=== PATIENT | male | born 1990 ===

== ENCOUNTER 2018-07-03 17:23 | Emergency (ER) | payer MEDICAID ==
--- NOTE | 2018-07-03 17:43 | ED PDOC ---
Arrival/HPI - General Time Seen by Provider: 07/03/18 17:27 Historian: Patient - History of Present Illness Narrative History of Present Illness (Text): 07/03/18 17:57 27 y/o male with no significant PMH presents to the Emergency department c/o chest pain and SOB x 4 days. Chest pain is left sided, sharp, and pleuritic, worse with deep breaths. He has been seen at [facility] twice and his PMD once in the last 4 days for the same complaints with negative workups. Pt thinks the symptoms may be caused or worsened by his anxiety. Admits to smoking approx 3 ci garettes per day and marijuana occasionally but not in the last 4 days. Denies trauma, recent URI, fever, chills, congestion, palpitations, cough, syncope, abdominal pain, nausea, vomiting, dizziness, headache, vision changes, or any other associated complaints. Past Medical History - Provider Review Nursing Documentation Reviewed: Yes Family/Social History - Physician Review Nursing Documentation Reviewed: Yes Family/Social History: No Known Family HX Allergies/Home Meds Allergies/Adverse Reactions: Allergies No Known Allergies Allergy (Verified 07/03/18 17:47) Home Medications: Home Meds Medication Instructions Recorded Confirmed Fluticasone Furoate [Arnuity 50 mcg IH DAILY 07/03/18 07/03/18 Ellipta] Review of Systems - Review of Systems Constitutional: Normal. absent: Fatigue, Fevers Eyes: Normal. absent: Vision Changes ENT: Normal. absent: Sore Throat, Sinus Congestion Respiratory: SOB. absent: Cough Cardiovascular: Chest Pain. absent: Palpitations, Syncope Gastrointestinal: Normal. absent: Abdominal Pain, Nausea, Vomiting Musculoskeletal: Normal. absent: Back Pain, Neck Pain Skin: Normal. absent: Rash Neurological: Normal. absent: Headache, Dizziness Physical Exam Vital Signs Reviewed: Yes Temperature: Afebrile Blood Pressure: Normal Pulse: Regular Respiratory Rate: Normal Appearance: Positive for: Well-Appearing, Non-Toxic, Comfortable Pain Distress: None Mental Status: Positive for: Alert and Oriented X 3 - Systems Exam Head: Present: Atraumatic, Normocephalic Pupils: Present: PERRL Extroacular Muscles: Present: EOMI Conjunctiva: Present: Normal Mouth: Present: Moist Mucous Membranes Neck: Present: Normal Range of Motion Respiratory/Chest: Present: Clear to Auscultation, Good Air Exchange. No: Respiratory Distress, Accessory Muscle Use Cardiovascular: Present: Regular Rate and Rhythm, Normal S1, S2, Peripheal Pulses Present Abdomen: Present: Normal Bowel Sounds. No: Tenderness, Distention, Peritoneal Signs Back: Present: Normal Inspection Upper Extremity: Present: Normal Inspection, Normal ROM, NORMAL PULSES, Neurovascularly Intact, Capillary Refill < 2s. No: Cyanosis, Edema, Temperature Abnormalties Lower Extremity: Present: Normal Inspection, NORMAL PULSES, Normal ROM, Neurovascularly Intact, Capillary Refill < 2 s. No: Edema, Temperature Abnormalties Neurological: Present: GCS=15, CN II-XII Intact, Speech Normal, Motor Func Grossly Intact, Normal Sensory Function, Gait Normal Skin: Present: Warm, Dry, Normal Color. No: Rashes Psychiatric: Present: Alert, Oriented x 3, Normal Insight, Normal Concentration, Normal Affect, Normal Mood Medical Decision Making ED Course and Treatment: 07/03/18 17:41 Initial Plan: * CBC, CMP * Coags * Cardiac Iso * EKG * CXR * IVF EKG shows rate 65; NSR; Normal intervals; No STEMI or other signs of acute ischemia 19:30 Bloodwork reviewed, unremarkable. Troponin and Dimer negative. CXR shows no active disease, no fracture Patient reports mild improvement with IV fluids Pt with BECKA heart score of 0, low risk for cardiac events. 19:37 Pt now requesting PES evaluation for anxiety and depression. Denies HI, SI, [place] lucinations. Pt medically cleared for psychiatric evaluation. UDS positive for benzodiazepines. 21:30 Pt psychiatrically cleared for discharge by crisis team. Pt given resources for psychiatric followup. Pt comfortable with discharge home. Denies pain, SOB, physical complaints, SI, HI, hallucinations. Advised PMD and psychiatric followup. Diagnostic testing results and plan of care discussed with patient. Strict instructions given regarding prescription use, importance of followup, and signs /symptoms to return to ER including fever, chills, continued pain, or any other new/worsening symptoms. Pt verbalized understanding of discussion. Patient is A&Ox3, ambulating with steady gait, with vital signs stable for discharge. - Lab Interpretations Lab Results: 07/03/18 18:57 07/03/18 18:57 Lab Results 07/03/18 19:00: Urine Opiates Screen Pending, Urine Methadone Screen Pending, Ur Barbiturates Screen Pending, Ur Phencyclidine Scrn Pending, Ur Amphetamines Screen Pending, U Benzodiazepines Scrn Pending, U Oth Cocaine Metabols Pending, U Cannabinoids Screen Negative 07/03/18 19:00: Urine Color Yellow, Urine Appearance Clear, Urine pH 6.0, Ur Specific [place] 1.025, Urine Protein Negative, Urine Glucose (UA) Negative, Urine Ketones Negative, Urine Blood Negative, Urine Nitrate Negative, Urine Bilirubin Negative, Urine Urobilinogen 1.0 H, Ur Leukocyte Esterase Negative 07/03/18 18:57: Sodium 140, Potassium 4.5, Chloride 100, Carbon Dioxide 32, Anion Gap 13, BUN 17, Creatinine 0.8, Est GFR ( Amer) > 60, Est GFR (Non- Af Amer) > 60, Random Glucose 103, Calcium 9.3, Magnesium 2.0, Total Bilirubin 0.5, AST 23, ALT 14, Alkaline Phosphatase 82, Lactate Dehydrogenase 297 L, Total Creatine Kinase 87, Troponin I < 0.01, Total Protein 7.2, Albumin 4.2, Globulin 3.0, Albumin/Globulin Ratio 1.4 07/03/18 18:57: PT 12.7 H, INR 1.14, APTT 38.0, D-Dimer, Quantitative < 200 07/03/18 18:57: WBC 7.4, RBC 5.16, Hgb 15.2, Hct 44.6, MCV 86.4, MCH 29.5, MCHC 34.1, RDW 12.4, Plt Count 184, MPV 11.9 H, Neut % (Auto) 67.3, Lymph % (Auto) 23.9, [place] % (Auto) 7.1 H, Eos % (Auto) 1.4 L, Baso % (Auto) 0.3, Lymph # (Auto) 1.8, [place] # (Auto) 0.5, Eos # (Auto) 0.1, Baso # (Auto) 0.02, Absolute Neuts (auto) 4.95 I have reviewed the lab results: Yes Interpretation: All labs normal - RAD Interpretation Narrative RAD Interpretations (Text): 07/03/18 18:51 CXR: FINDINGS: LUNGS: No active pulmonary disease. PLEURA: No significant pleural effusion identified, no pneumothorax apparent. CARDIOVASCULAR: No atherosclerotic calcification present Normal. OSSEOUS STRUCTURES: No significant abnormalities. VISUALIZED UPPER ABDOMEN: Normal. OTHER FINDINGS: None. IMPRESSION: No active disease. 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 Ulcer: No - Disposition Have Diagnosis and Disposition been Completed?: Yes Diagnosis: Anxiety, Pleurisy Disposition: HOME/ ROUTINE Disposition Time: 21:39 Condition: GOOD Discharge Instructions (ExitCare): Pleuritic Chest Pain, Anxiety, Adult (DC) Additional Instructions: Ibuprofen every 8 hours with food as needed Increase fluids Stop smoking Followup with mental health resources as directed Followup with primary doctor within 2 days Return to ER with any new/worsening symptoms Prescriptions: Ibuprofen [Motrin Tab] 600 mg PO Q8 PRN #30 tab PRN Reason: Pain, Moderate (4-7) Referrals: Johanna Fenton MD [Medical Doctor] - Follow up with primary [facility] [Outside] - Follow up with primary [facility] [Outside] - Follow up with primary Forms: WORK NOTE
[2018-07-03 17:48] VITALS: BMI 16.5
[2018-07-03] MEDS ORDERED: Sodium Chloride 0.9% 1,000 ML IV STA (17:58)
--- NOTE | 2018-07-03 18:34 | RAD ---
Date of service: 07/03/2018 HISTORY: SOB COMPARISON: No prior. FINDINGS: LUNGS: No active pulmonary disease. PLEURA: No significant pleural effusion identified, no pneumothorax apparent. CARDIOVASCULAR: No atherosclerotic calcification present Normal. OSSEOUS STRUCTURES: No significant abnormalities. VISUALIZED UPPER ABDOMEN: Normal. OTHER FINDINGS: None. IMPRESSION: No active disease.
[2018-07-03 18:58] VITALS: TEMP 98
--- NOTE | 2018-07-03 19:01 | CARD ---
APPROVED REPORT Date of service: 07/03/2018 EKG Measurement Heart [id number] <Conclusion> Normal sinus rhythm Normal ECG
[2018-07-03 19:07] LABS: BASO # 0.02 K/mm3 (0.0-2.0); BASO % 0.3 % (0.0-3.0); EOS # 0.1 (0.0-0.7); EOS % 1.4 % (1.5-5.0); HEMOGLOBIN 15.2 g/dL (14.0-18.0); LYMPH # 1.8 (1.2-3.4); LYMPH % 23.9 % (22.0-35.0); MEAN CELL VOLUME 86.4 fl (80.0-105.0); MEAN CORPUSCULAR HEMOGLOBIN 29.5 pg (25.0-35.0); MEAN CORPUSCULAR HGB CONC 34.1 g/dl (31.0-37.0); MEAN PLATELET VOLUME 11.9 fl (7.0-11.0); MONO # 0.5 (0.1-0.6); MONO % 7.1 % (1.0-6.0); RBC 5.16 10^6/uL (3.5-6.1); RED CELL DISTRIBUTION WIDTH 12.4 % (11.5-14.5); WHITE BLOOD COUNT 7.4 10^3/uL (4.5-11.0)
[2018-07-03 19:13] LABS: INR 1.14; PROTHROMBIN TIME 12.7 SECONDS (9.4-12.5)
[2018-07-03 19:14] LABS: URINE BILIRUBIN NEGATIVE (NEGATIVE); URINE BLOOD NEGATIVE (NEGATIVE); URINE GLUCOSE (UA) NEGATIVE (NEGATIVE); URINE LEUKOCYTE ESTERASE NEGATIVE Leu/uL (NEGATIVE); URINE PROTEIN NEGATIVE mg/dL (<30 mg/dL)
[2018-07-03 19:15] LABS: ALB/GLOB RATIO 1.4 (1.1-1.8); ALBUMIN 4.2 g/dL (3.0-4.8); ALT/SGPT 14 U/L (7-56); AST/SGOT 23 U/L (17-59); BLOOD UREA NITROGEN 17 mg/dL (7-21); CALCIUM 9.3 mg/dL (8.4-10.5); GFR NON-AFRICAN AMERICAN > 60
[2018-07-03 19:17] LABS: URINE APPEARANCE CLEAR (CLEAR); URINE COLOR YELLOW (YELLOW)
[2018-07-03 19:19] LABS: D DIMER < 200 ng/mlDDU (0-243)
[2018-07-03 19:26] LABS: TROPONIN I < 0.01 ng/mL
[2018-07-03 19:40] LABS: BARBITURATES, UR NEGATIVE (NEGATIVE); BENZODIAZEPINES, UR POSITIVE (NEGATIVE); OPIATES, UR NEGATIVE (NEGATIVE); PHENCYCLIDINE, UR NEGATIVE (NEGATIVE)
[2018-07-03 19:53] LABS: ACETAMINOPHEN < 10.0 ug/ml (10.0-20.0); SALICYLATE < 1 mg/dL (2.0-20.0)
[2018-07-03 21:57] VITALS: BP 112/63; PULSE 72; RESP 18; O2SAT 100
== END 2018-07-03 21:50 | disposition home or self-care (01) ==
LOC: ED 17:23
DX: R09.1 Pleurisy (principal); F41.9 Anxiety disorder, unspecified; F17.210 Nicotine dependence, cigarettes, uncomplicated
CPT/HCPCS: 71045; 80053; 80320; 80324; 80329; 80345; 80346; 80349; 80353; 80358; 80361; 81003; 82550; 83615; 83735; 83992; 84484; 85025; 85378; 85610; 85730; 90791; 93005; 99285; J7030